=== PATIENT | male | born 1960 | race Asian ===

== ENCOUNTER 2018-12-25 05:15 | Day surgery (SDC) | payer MEDICAID ==
[~2018-12-25] VITALS: Ht 185.4 cm; Wt 74.5 kg
[~2018-12-25 05:15] MED LIST: ASPI81 PO; CALC-795 PO; FAMO10TA39 PO; LISI-660 PO; MAGOX PO; ROSU10TA22 PO; SIRO0.5T3 PO; SODIUM CHLORIDE 0.9% 1,000 ML IV ONE; TACR1 PO
[2018-12-25] MEDS ORDERED: SODIUM CHLORIDE 0.9% 1,000 ML IV ONE (05:30)
[2018-12-25] MEDS ORDERED: LIDOCAINE/PF 2% 5 ML VIAL INJ ONE (12:00)
[2018-12-25] MEDS ORDERED: PROPOFOL 1% 20 ML VIAL IVP ONE (12:00)
== END 2018-12-25 09:45 | disposition home or self-care (01) ==
LOC: SURGERY 05:15
PROVIDERS: ATTEND Student in an Organized Health Care Education/Training Program
DX: K59.00 Constipation, unspecified (principal); R12 Heartburn; D12.0 Benign neoplasm of cecum; K29.50 Unspecified chronic gastritis without bleeding; K64.8 Other hemorrhoids; K21.9 Gastro-esophageal reflux disease without esophagitis; M81.0 Age-related osteoporosis without current pathological fracture; Z87.891 Personal history of nicotine dependence; Z79.899 Other long term (current) drug therapy; Z79.82 Long term (current) use of aspirin; Z94.1 Heart transplant status; Z98.890 Other specified postprocedural states
CPT/HCPCS: 43239; 45380; 88305; 88312; 88313; 93005; C1769; J2704; J3490; J7030